=== PATIENT | male | born 1980 | race Caucasian/White ===

== ENCOUNTER 2017-05-10 11:49 | Inpatient (IN) | payer OTHER ==
[2017-05-10 13:36] VITALS: BMI 37.6
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
[2017-05-10] MEDS ORDERED: diphenhydrAMINE HCL 50 MG CAPSULE PO PRN (17:32)
[2017-05-10] MEDS ORDERED: MAG HYDROX/AL HYDROX/SIMETH 30 ML UNIT-DOSE CUP PO PRN (17:32)
[2017-05-10] MEDS ORDERED: NICOTINE POLACRILEX 2 MG GUM BUC PRN (17:32)
[2017-05-10] MEDS ORDERED: MENTHOL/PHENOL 1 EACH UD MM PRN (17:32)
[2017-05-10] MEDS ORDERED: guaiFENesin/D-METHORPHAN HB 10 ML UNIT-DOSE CUPS PO PRN (17:32)
[2017-05-10] MEDS ORDERED: P-EPHED 60MG/TRIPROLIDI 2.5MG TABLET PO PRN (17:32)
[2017-05-10] MEDS ORDERED: MAGNESIUM HYDROX 2400MG/30ML ORAL SUSPENSION 30 ML CUP PO PRN (17:32)
[2017-05-10] MEDS ORDERED: IBUPROFEN 400 MG TABLET (FP) PO PRN (17:32)
[2017-05-10] MEDS ORDERED: LOPERAMIDE HCL 2 MG CAPSULE PO PRN (17:32)
[2017-05-10] MEDS ORDERED: MAGNESIUM CITRATE 300 ML BOTTLE PO PRN (17:32)
[2017-05-10] MEDS ORDERED: ACETAMINOPHEN 325 MG TABLET (FP) PO PRN (17:32)
[2017-05-10] MEDS ORDERED: ALBUTEROL SO4 6.7 GM HFA INHALER IH PRN (17:34)
[2017-05-10] MEDS ORDERED: ALBUTEROL SO4 2.5/IPRATROPIUM 0.5 INH SOL 3 ML VIAL.NEB. NEB PRN (17:34)
[2017-05-10] MEDS ORDERED: METHADONE HCL 10 MG TABLET (FOR DETOX USE ONLY) PO ONE ×2 (18:15→23:00)
[2017-05-10] MEDS: diazePAM 5 MG TABLET PO PRN ×2 (18:19→22:30)
[2017-05-10] MEDS ORDERED: TETANUS AND DIPHTHERIA TOXOID 0.5 ML DISP.SYRIN IM ONE (22:00)
[2017-05-10 22:30] LABS: URINE APPEARANCE CLEAR; URINE BILIRUBIN NEGATIVE (NEGATIVE); URINE BLOOD NEGATIVE (NEGATIVE); URINE COLOR LTYELLOW; URINE GLUCOSE (UA) NEGATIVE (NEGATIVE); URINE KETONE NEGATIVE (NEGATIVE); URINE LEUK ESTERASE NEGATIVE (NEGATIVE); URINE NITRITE NEGATIVE (NEGATIVE); URINE PROTEIN NEGATIVE (NEGATIVE); URINE UROBILINOGEN NEGATIVE E.U./dl (0.2-1.0)
[2017-05-10] MEDS: THIAMINE HCL 100 MG TABLET (FP) PO SCH (22:30)
[2017-05-11] MEDS: diazePAM 5 MG TABLET PO PRN ×4 (05:31→19:38)
--- NOTE | 2017-05-11 09:54 | CONSULT ---
[facility] Psychiatric Consult - Data Date of interview: 05/11/17 Admission source: [facility] Identifying data: This is 36 years old male with no psychiatric hospitalization history intoxicated with: Opioids, Klonopin and Nicotine Substance Abuse History: - Smoking Cessation. Smoking history: Current every day smoker. Have you smoked in the past 12 months: Yes. Aproximately how many cigarettes per day: 10. Cigars Per Day: 0. Hx Chewing Tobacco Use: No. Initiated information on smoking cessation: Yes. 'Breaking Loose' booklet given : 05/10/17. - Substance & Tx. History. Hx Alcohol Use: No. Hx Substance Use: Yes. Substance Use Type: Heroin. Hx Substance Use Treatment: No. - Substances Abused. Roxycodone. Route: Oral. Frequency: Daily. Amount used : 8 tabs. (30 mg.). Age of first use: 33. Date of Last Use: 05/09/17. Klonopin. Route: Oral. Frequency: 3-6 times per week. Amount used: 3-4 mg. Age of first use: 17. Date of Last Use: 05/10/17 Medical History: Asthma Psychiatric History: Denies Physical/Sexual Abuse/Trauma History: Denies Additional Comment: Observation. Detox Unit Care Protocol Mental Status Exam - Mental Status Exam Alert and Oriented to: Person Cognitive Function: Fair Patient Appearance: Unkempt Mood: Sad Affect: Flat Patient Behavior: Sedated Speech Pattern: Delayed Voice Loudness: Mildly Soft/Quiet Thought Process: Goal Oriented Thought Disorder: Being Controlled Hallucinations: Denies Suicidal Ideation: Denies Homicidal Ideation: Denies Insight/Judgement: Fair Sleep: Difficulty falling asleep Appetite: Fair Muscle strength/Tone: Normal Gait/Station: Normal Additional Comments: Observation. Detox Unit Care Protocol Psychiatric Findings - Problem List ([place] 1, 2,3) (1) Nicotine dependence Current Visit: Yes Status: Acute Qualifiers: Nicotine product type: cigarettes Substance use status: in withdrawal Qualified Code(s): F17.213 - Nicotine dependence, cigarettes, with withdrawal (2) Opioid dependence with withdrawal Current Visit: Yes Status: Acute (3) Klonopin use disorder, mild, abuse Current Visit: Yes Status: Acute (4) Drug-induced mood disorder Current Visit: Yes Status: Suspected - Initial Treatment Plan Initial Treatment Plan: Observation. Detox Unit Care Protocol
[2017-05-11] MEDS ORDERED: NICOTINE 21 MG/24 HOURS TOPICAL PATCH TD SCH (10:00)
[2017-05-11] MEDS ORDERED: METHADONE HCL 10 MG TABLET (FOR DETOX USE ONLY) PO ONE (10:00)
[2017-05-11 10:09] LABS: MCH 30.2 pg (25.7-33.7); MCHC 33.6 g/dl (32.0-35.9); MEAN CELL VOLUME 89.9 fl (80-96); MEAN PLT VOLUME 9.2 fl (7.5-11.1); PLATELET COUNT 168 K/MM3 (134-434); RDW 13.4 % (11.9-15.9); WHITE BLOOD COUNT 6.4 K/mm3 (4.0-10.0)
[2017-05-11] MEDS: PRENATAL VITAMINS W/ FOLIC ACID TABLET (FP) PO SCH (10:18)
--- NOTE | 2017-05-11 10:18 | PN ---
S COWS - Scale Resting Pulse: 2= [place] 101-120 Sweatin= Chills/Flushing Restless Observation: 3= Extraneous Movement Pupil Size: 1= Pupils >than Normal Bone or Joint Aches: 2= Severe Diffuse Aches Runny Nose/ Eye Tearin= Runny Nose/Eyes GI Upset > 30mins: 2= Nausea/Diarrhea Tremor Observation of Outstretched Hands: 2= Slight Tremor Visible Yawning Observation: 1= 1-2x During Session Anxiety or Irritability: 2=Irritable/Anxious Goose Flesh Skin: 0=Smooth Skin COWS Score: 18 S Progress Note (SOAP) Subjective: alert,irritable,anxious,interrupted sleep,tremor,pain in the body Objective: 05/11/17 10:15 Vital Signs Temperature 97 F L 05/11/17 09:35 Pulse Rate 108 H 05/11/17 09:35 Respiratory Rate 18 05/11/17 09:35 Blood Pressure 147/79 05/11/17 09:35 O2 Sat by Pulse Oximetry (%) ekg nsr no chest pain,no sob,no dizziness Laboratory Last Values WBC 6.4 K/mm3 (4.0-10.0) 05/11/17 06:00 RBC 4.80 M/mm3 (4.00-5.60) 05/11/17 06:00 Hgb 14.5 GM/dL (11.7-16.9) 05/11/17 06:00 Hct 43.1 % (35.4-49) 05/11/17 06:00 MCV 89.9 fl (80-96) 05/11/17 06:00 MCHC 33.6 g/dl (32.0-35.9) 05/11/17 06:00 RDW 13.4 % (11.9-15.9) 05/11/17 06:00 Plt Count 168 K/MM3 (134-434) 05/11/17 06:00 MPV 9.2 fl (7.5-11.1) 05/11/17 06:00 Urine Color Ltyellow 05/10/17 20:30 Urine Appearance Clear 05/10/17 20:30 Urine pH 8.0 (5.0-8.0) 05/10/17 20:30 Urine Protein Negative (NEGATIVE) 05/10/17 20:30 Urine Glucose (UA) Negative (NEGATIVE) 05/10/17 20:30 Urine Ketones Negative (NEGATIVE) 05/10/17 20:30 Urine Blood Negative (NEGATIVE) 05/10/17 20:30 Urine Nitrite Negative (NEGATIVE) 05/10/17 20:30 Urine Bilirubin Negative (NEGATIVE) 05/10/17 20:30 Urine Urobilinogen Negative E.U./dl (0.2-1.0) 05/10/17 20:30 Ur Leukocyte Esterase Negative (NEGATIVE) 05/10/17 20:30 labs pending Assessment: 05/11/17 10:17 withdrawal symptom Plan: continue detox
[2017-05-11] MEDS: NICOTINE 14 MG/24 HOURS TOPICAL PATCH TD SCH (10:23)
[2017-05-11 10:46] LABS: ALBUMIN 3.9 g/dl (3.4-5.0); ALK PHOS 101 U/L (45-117); ANION GAP 8 (8-16); BILIRUBIN,TOTAL 1.2 mg/dL (0.2-1.0); CALCIUM 8.9 mg/dL (8.5-10.1); CO2 28 mmol/L (21-32); CREATININE 1.3 mg/dL (0.7-1.3); GLUCOSE,RANDOM 114 mg/dL (74-106); SGOT/AST 24 U/L (15-37); SGPT/ALT 58 U/L (12-78); TOT PROT 7.1 g/dl (6.4-8.2)
--- NOTE | 2017-05-11 12:49 | EKG ---
Test Reason : Blood Pressure : / mmHG Vent. Rate : 091 BPM Atrial Rate : 091 BPM P-R Int : 176 ms QRS Dur : 106 ms QT Int : 354 ms P-R-T Axes : 056 -32 046 degrees QTc Int : 435 ms NORMAL SINUS RHYTHM LEFT AXIS DEVIATION INCOMPLETE RIGHT BUNDLE BRANCH BLOCK ABNORMAL ECG NO PREVIOUS ECGS AVAILABLE Confirmed by GEORGE MARTINEZ MD ([id number]) on 05/11/2017 12:48:53 PM Referred By: Confirmed By:GEORGE MARTINEZ MD
[2017-05-11] MEDS: THIAMINE HCL 100 MG TABLET (FP) PO SCH (22:26)
[2017-05-12] MEDS: diazePAM 5 MG TABLET PO PRN ×2 (05:08→10:08)
[2017-05-12 09:44] VITALS: BP 126/98; PULSE 96; TEMP 96.8
[2017-05-12] MEDS ORDERED: METHADONE HCL 5 MG TABLET (FOR DETOX USE ONLY) PO ONE (10:00)
[2017-05-12] MEDS: PRENATAL VITAMINS W/ FOLIC ACID TABLET (FP) PO SCH (10:06)
[2017-05-12] MEDS: NICOTINE 14 MG/24 HOURS TOPICAL PATCH TD SCH (10:07)
--- NOTE | 2017-05-12 11:06 | PN ---
[facility] COWS - Scale Resting Pulse: 1= [place] 81-100 Sweatin= Chills/Flushing Restless Observation: 3= Extraneous Movement Pupil Size: 1= Pupils >than Normal Bone or Joint Aches: 2= Severe Diffuse Aches Runny Nose/ Eye Tearin= Runny Nose/Eyes GI Upset > 30mins: 2= Nausea/Diarrhea Tremor Observation of Outstretched Hands: 2= Slight Tremor Visible Yawning Observation: 1= 1-2x During Session Anxiety or Irritability: 2=Irritable/Anxious Goose Flesh Skin: 0=Smooth Skin COWS Score: 17 BHS Progress Note (SOAP) Subjective: ALERT,IRRITABLE,ANXIOUS,PAIN IN THE BODY AND BACK,TREMOR Objective: 05/12/17 11:05 Vital Signs Temperature 96.8 F L 05/12/17 09:43 Pulse Rate 96 H 05/12/17 09:43 Respiratory Rate 20 05/12/17 09:43 Blood Pressure 126/98 05/12/17 09:43 O2 Sat by Pulse Oximetry (%) Laboratory Last Values WBC 6.4 K/mm3 (4.0-10.0) 05/11/17 06:00 RBC 4.80 M/mm3 (4.00-5.60) 05/11/17 06:00 Hgb 14.5 GM/dL (11.7-16.9) 05/11/17 06:00 Hct 43.1 % (35.4-49) 05/11/17 06:00 MCV 89.9 fl (80-96) 05/11/17 06:00 MCHC 33.6 g/dl (32.0-35.9) 05/11/17 06:00 RDW 13.4 % (11.9-15.9) 05/11/17 06:00 Plt Count 168 K/MM3 (134-434) 05/11/17 06:00 MPV 9.2 fl (7.5-11.1) 05/11/17 06:00 Sodium 142 mmol/L (136-145) 05/11/17 06:00 Potassium 4.2 mmol/L (3.5-5.1) 05/11/17 06:00 Chloride 106 mmol/L (98-107) 05/11/17 06:00 Carbon Dioxide 28 mmol/L (21-32) 05/11/17 06:00 Anion Gap 8 (8-16) 05/11/17 06:00 BUN 20 mg/dL (7-18) H 05/11/17 06:00 Creatinine 1.3 mg/dL (0.7-1.3) 05/11/17 06:00 Creat Clearance w eGFR > 60 (>60) 05/11/17 06:00 Random Glucose 114 mg/dL (74-106) H 05/11/17 06:00 Calcium 8.9 mg/dL (8.5-10.1) 05/11/17 06:00 Total Bilirubin 1.2 mg/dL (0.2-1.0) H 05/11/17 06:00 AST 24 U/L (15-37) 05/11/17 06:00 ALT 58 U/L (12-78) 05/11/17 06:00 Alkaline Phosphatase 101 U/L (45-117) 05/11/17 06:00 Total Protein 7.1 g/dl (6.4-8.2) 05/11/17 06:00 Albumin 3.9 g/dl (3.4-5.0) 05/11/17 06:00 Urine Color Ltyellow 05/10/17 20:30 Urine Appearance Clear 05/10/17 20:30 Urine pH 8.0 (5.0-8.0) 05/10/17 20:30 Ur Specific [place] 1.020 (1.005-1.025) 05/10/17 20:30 Urine Protein Negative (NEGATIVE) 05/10/17 20:30 Urine Glucose (UA) Negative (NEGATIVE) 05/10/17 20:30 Urine Ketones Negative (NEGATIVE) 05/10/17 20:30 Urine Blood Negative (NEGATIVE) 05/10/17 20:30 Urine Nitrite Negative (NEGATIVE) 05/10/17 20:30 Urine Bilirubin Negative (NEGATIVE) 05/10/17 20:30 Urine Urobilinogen Negative E.U./dl (0.2-1.0) 05/10/17 20:30 Ur Leukocyte Esterase Negative (NEGATIVE) 05/10/17 20:30 RPR Titer Nonreactive (NONREACTIVE) 05/11/17 06:00 Hepatitis C Antibody <0.1 s/co ratio (0.0-0.9) 05/11/17 06:00 Assessment: 05/12/17 11:05 WITHDRAWAL SYMPTOM Plan: CONTINUE DETOX
--- NOTE | 2017-05-12 11:08 | PN ---
S Progress Note Note: PATIENT DID NOT WANT TO COMPLETE TREATMENT,SIGNED RELEASE AMA,SEEN BY COUNSELOR
--- NOTE | 2017-05-12 11:11 | DS ---
[facility] Detox Discharge Summary Admission Date: 05/10/17 Discharge Date: 05/12/17 - History Present History: Opioid Dependence Additional Comments: PATIENT DID NOT WANT TO COMPLETE TREATMENT,SINGED RELEASE AMA,SEEN BY COUNSELOR Pertinent Past History: ASTHMA NICOTINE DEPENDENCE - Physical Exam Results Vital Signs: Vital Signs Temperature 96.8 F L 05/12/17 09:43 Pulse Rate 96 H 05/12/17 09:43 Respiratory Rate 20 05/12/17 09:43 Blood Pressure 126/98 05/12/17 09:43 O2 Sat by Pulse Oximetry (%) Pertinent Admission Physical Exam Findings: WITHDRAWAL SYMPTOM - Treatment Patient has Accepted a Rehab Referral to: DECLINED - Medication Discharge Medications: Ambulatory Orders Albuterol Sulfate Inhaler - [Ventolin Hfa Inhaler -] 2 inh PO Q4H PRN 05/10/17 - Diagnosis (1) Nicotine dependence Current Visit: Yes Status: Acute Qualifiers: Nicotine product type: cigarettes Substance use status: in withdrawal Qualified Code(s): F17.213 - Nicotine dependence, cigarettes, with withdrawal (2) Opioid dependence with withdrawal Current Visit: Yes Status: Acute (3) Asthma Current Visit: Yes Status: Chronic Qualifiers: Asthma severity: mild persistent Asthma complication type: with status asthmaticus Qualified Code(s): J45.32 - Mild persistent asthma with status asthmaticus
[2017-05-13] MEDS ORDERED: METHADONE HCL 5 MG TABLET (FOR DETOX USE ONLY) PO ONE (10:00)
[2017-05-14] MEDS ORDERED: METHADONE HCL 10 MG TABLET (FOR DETOX USE ONLY) PO ONE (10:00)
[2017-05-15] MEDS ORDERED: METHADONE HCL 5 MG TABLET (FOR DETOX USE ONLY) PO ONE (06:00)
== END 2017-05-12 11:31 | disposition left against medical advice (07) | DRG 894 ==
LOC: YASAS 11:49 → Y6N 16:08
PROVIDERS: ADMIT Internal Medicine; ATTEND Internal Medicine
PROC: HZ2ZZZZ Detoxification Services for Substance Abuse Treatment (ICD-10-PCS; principal; 2017-05-10)
DX: F11.23 Opioid dependence with withdrawal (principal); J45.32 Mild persistent asthma with status asthmaticus; F17.210 Nicotine dependence, cigarettes, uncomplicated; F19.24 Other psychoactive substance dependence with psychoactive substance-induced mood disorder; E66.9 Obesity, unspecified; Z68.37 Body mass index [BMI] 37.0-37.9, adult; Z86.69 Personal history of other diseases of the nervous system and sense organs; Z87.438 Personal history of other diseases of male genital organs
CPT/HCPCS: 36415; 80053; 81003; 85027; 86593; 86803; 93005; 93010

== ENCOUNTER 2017-07-07 12:24 | Inpatient (IN) | payer OTHER ==
[2017-07-07 12:57] VITALS: BMI 34.2
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
[2017-07-07] MEDS ORDERED: IBUPROFEN 400 MG TABLET (FP) PO PRN (15:22)
[2017-07-07] MEDS ORDERED: MAGNESIUM CITRATE 300 ML BOTTLE PO PRN (15:22)
[2017-07-07] MEDS ORDERED: ACETAMINOPHEN 325 MG TABLET (FP) PO PRN (15:22)
[2017-07-07] MEDS ORDERED: guaiFENesin/D-METHORPHAN HB 10 ML UNIT-DOSE CUPS PO PRN (15:22)
[2017-07-07] MEDS ORDERED: MAGNESIUM HYDROX 2400MG/30ML ORAL SUSPENSION 30 ML CUP PO PRN (15:22)
[2017-07-07] MEDS ORDERED: NICOTINE POLACRILEX 2 MG GUM BUC PRN (15:22)
[2017-07-07] MEDS ORDERED: P-EPHED 60MG/TRIPROLIDI 2.5MG TABLET PO PRN (15:22)
[2017-07-07] MEDS ORDERED: hydrOXYzine PAMOATE 50 MG CAPSULE (FP) PO PRN (15:22)
[2017-07-07] MEDS ORDERED: MENTHOL/PHENOL 1 EACH UD MM PRN (15:22)
[2017-07-07] MEDS ORDERED: MAG HYDROX/AL HYDROX/SIMETH 30 ML UNIT-DOSE CUP PO PRN (15:22)
[2017-07-07] MEDS ORDERED: LOPERAMIDE HCL 2 MG CAPSULE PO PRN (15:22)
[2017-07-07] MEDS ORDERED: ALBUTEROL SO4 6.7 GM HFA INHALER IH PRN (15:27)
--- NOTE | 2017-07-07 15:34 | CONSULT ---
[facility] Psychiatric Consult - Data Date of interview: 07/07/17 Admission source: [facility] Identifying data: This is 37 years old male with no psychiatric hospitalization history, intoxicated with: Alcohol, Cocaine, Heroin, Carri, Methamphethamins and Nicotine Substance Abuse History: - Smoking Cessation. Smoking history: Current every day smoker. Have you smoked in the past 12 months: Yes. Aproximately how many cigarettes per day: 6. If you are a former smoker, when did you quit?: 2006. Cigars Per Day: 0. Hx Chewing Tobacco Use: No. Initiated information on smoking cessation: Yes. 'Breaking Loose' booklet given: 07/07/17. - Substance & Tx. History. Hx Alcohol Use: Yes (BACARDI). Hx Substance Use: Yes (HEROIN/ ROXYCODONE/STREET METHADONE/KLONOPIN/COCAINE/FENTANYL). Substance Use Type: Alcohol, Cocaine, Heroin, Opiates, Tranquilizers. Hx Substance Use Treatment: Yes (LAST TX AT [facility] DETOX). - Substances Abused. Alcohol. Route: Oral. Frequency: Daily. Amount used: RUm(1 PINT). Age of first use: 13. Date of Last Use: 07/07/17. Cocaine. Route: Injection. Frequency: Daily. Amount used: 2 GMS. Age of first use: 8. Date of Last Use: 07/06/17. Heroin. Route: Inhalation. Frequency: Daily. Amount used: 2-3 BAGS. Age of first use : 16. Date of Last Use: 07/05/17. Benzodiazepine (Klonopin). Route: Oral. Frequency: Daily. Amount used: 2-9MG. Age of first use: 27. Date of Last Use: 07/07/17. Non-Rx Methadone. Route: Oral. Frequency: 3-6 times per week. Amount used: 180 MG. Age of first use: 37. Date of Last Use: 07/06/17. CARRI. Route: Oral. Frequency: Daily. Amount used: 150 MG. Age of first use: 35. Date of Last Use: 07/05/17 Medical History: Asthma, Seizure disorder Psychiatric History: Denies past psychiatric history, reports no medications taking prior to admission Physical/Sexual Abuse/Trauma History: Denies Additional Comment: Observation. Detox Unit Care Protocol Mental Status Exam - Mental Status Exam Alert and Oriented to: Time, Place, Person Cognitive Function: Fair Patient Appearance: Well Groomed Mood: Anxious Affect: Mood Congruent Patient Behavior: Appropriate Speech Pattern: Appropriate Voice Loudness: Normal Thought Process: Goal Oriented Thought Disorder: Being Controlled Hallucinations: Denies Suicidal Ideation: Denies Homicidal Ideation: Denies Insight/Judgement: Fair Sleep: Difficulty falling asleep Appetite: Fair Muscle strength/Tone: Normal Gait/Station: Normal Additional Comments: Observation. Detox Unit Care Protocol Psychiatric Findings - Problem List ([place] 1, 2,3) (1) Alcohol dependence with uncomplicated withdrawal Current Visit: Yes Status: Acute (2) Nicotine dependence Current Visit: Yes Status: Acute Qualifiers: Nicotine product type: cigarettes Substance use status: in withdrawal Qualified Code(s): F17.213 - Nicotine dependence, cigarettes, with withdrawal (3) Opioid dependence with withdrawal Current Visit: Yes Status: Acute (4) Klonopin use disorder, mild, abuse Current Visit: No Status: Acute (5) Drug-induced mood disorder Current Visit: No Status: Suspected (6) Methamphetamine abuse Current Visit: Yes Status: Acute - Initial Treatment Plan Initial Treatment Plan: Observation. Detox Unit Care Protocol
[2017-07-07] MEDS ORDERED: chlordiazePOXIDE HCL 25 MG CAPSULE PO ONE (15:41)
[2017-07-07] MEDS ORDERED: METHADONE HCL 10 MG TABLET (FOR DETOX USE ONLY) PO ONE ×2 (15:42→23:00)
[2017-07-07 15:53] LABS: MCH 30.8 pg (25.7-33.7); MCHC 35.1 g/dl (32.0-35.9); MEAN CELL VOLUME 87.7 fl (80-96); MEAN PLT VOLUME 8.5 fl (7.5-11.1); PLATELET COUNT 291 K/MM3 (134-434); RDW 13.5 % (11.9-15.9); WHITE BLOOD COUNT 7.6 K/mm3 (4.0-10.0)
[2017-07-07 16:39] LABS: ALBUMIN 3.9 g/dl (3.4-5.0); ANION GAP 7 (8-16); CO2 26 mmol/L (21-32); CREATININE 1.3 mg/dL (0.7-1.3); GLUCOSE,RANDOM 119 mg/dL (74-106); SGOT/AST 14 U/L (15-37); SGPT/ALT 39 U/L (12-78)
[2017-07-07 16:41] LABS: ALK PHOS 98 U/L (45-117); BILIRUBIN,TOTAL 1.1 mg/dL (0.2-1.0); TOT PROT 7.3 g/dl (6.4-8.2)
[2017-07-07] MEDS: chlordiazePOXIDE HCL 25 MG CAPSULE PO SCH ×2 (16:48→22:09)
[2017-07-07] MEDS: NICOTINE 14 MG/24 HOURS TOPICAL PATCH TD SCH ×2 (16:51→17:17)
[2017-07-07] MEDS: THIAMINE HCL 100 MG TABLET (FP) PO SCH (22:09)
[2017-07-07 22:27] LABS: URINE APPEARANCE CLEAR; URINE BILIRUBIN NEGATIVE (NEGATIVE); URINE BLOOD NEGATIVE (NEGATIVE); URINE COLOR YELLOW; URINE GLUCOSE (UA) NEGATIVE (NEGATIVE); URINE KETONE NEGATIVE (NEGATIVE); URINE LEUK ESTERASE NEGATIVE (NEGATIVE); URINE NITRITE NEGATIVE (NEGATIVE); URINE PROTEIN NEGATIVE (NEGATIVE)
[2017-07-08] MEDS: chlordiazePOXIDE HCL 25 MG CAPSULE PO SCH ×4 (05:24→22:05)
[2017-07-08 09:36] LABS: HIV 1 & 2 AB NEGATIVE; HIV 1 AGp24 NEGATIVE
--- NOTE | 2017-07-08 09:38 | EKG ---
Test Reason : Blood Pressure : / mmHG Vent. Rate : 077 BPM Atrial Rate : 077 BPM P-R Int : 166 ms QRS Dur : 110 ms QT Int : 378 ms P-R-T Axes : 050 -31 043 degrees QTc Int : 427 ms NORMAL SINUS RHYTHM LEFT AXIS DEVIATION ABNORMAL ECG Confirmed by ZINA STOKES MD ([id number]) on 07/08/2017 9:37:53 AM Referred By: Musa Bravo Confirmed By:ZINA STOKES MD
[2017-07-08] MEDS ORDERED: METHADONE HCL 10 MG TABLET (FOR DETOX USE ONLY) PO SCH (10:00)
[2017-07-08] MEDS: NICOTINE 14 MG/24 HOURS TOPICAL PATCH TD SCH (10:12)
[2017-07-08] MEDS: PRENATAL VITAMINS W/ FOLIC ACID TABLET (FP) PO SCH (10:12)
[2017-07-08] MEDS ORDERED: TRIMETHOBENZAMIDE HCL 200MG/2ML INJ IM PRN (10:41)
--- NOTE | 2017-07-08 10:47 | PN ---
S CIWA - CIWA Score Nausea/Vomitin Muscle Tremors: 3 Anxiety: 2 Agitation: 0-Normal Activity Paroxysmal Sweats: 3 Orientation: 0-Oriented Tacttile Disturbances: 2-Mild Itch/Numbness/Burn Auditory Disturbances: 0-None Visual Disturbances: 0-None Headache: 3-Moderate CIWA-Ar Total Score: 18 BHS COWS - Scale Resting Pulse: 2= [place] 101-120 Sweatin= Chills/Flushing Restless Observation: 0= Sits Still Pupil Size: 0= Normal to Room Light Bone or Joint Aches: 2= Severe Diffuse Aches Runny Nose/ Eye Tearin= Nasal Congestion GI Upset > 30mins: 3= Vomiting/Diarrhea Tremor Observation of Outstretched Hands: 2= Slight Tremor Visible Yawning Observation: 1= 1-2x During Session Anxiety or Irritability: 2=Irritable/Anxious Goose Flesh Skin: 0=Smooth Skin COWS Score: 14 BHS Progress Note (SOAP) Subjective: Tremors, Stomach Cramping, H/A, Vomiting, Interrupted Sleep, Body aches, Sweating. Objective: PT. A & O X 3, OBSERVED AMBULATING ON UNIT. NO ACUTE DISTRESS. 07/08/17 10:44 Vital Signs Temperature 96.5 F L 07/08/17 10:37 Pulse Rate 101 H 07/08/17 10:37 Respiratory Rate 19 07/08/17 10:37 Blood Pressure 113/76 07/08/17 10:37 O2 Sat by Pulse Oximetry (%) Laboratory Tests 07/07/17 07/07/17 07/07/17 14:00 14:00 14:00 WBC 7.6 RBC 4.89 Hgb 15.1 Hct 42.9 MCV 87.7 MCH 30.8 MCHC 35.1 RDW 13.5 Plt Count 291 D MPV 8.5 Sodium 141 Potassium 4.2 Chloride 108 H Carbon Dioxide 26 Anion Gap 7 L BUN 13 D Creatinine 1.3 Creat Clearance w eGFR > 60 Random Glucose 119 H Calcium 9.0 Total Bilirubin 1.1 H AST 14 L D ALT 39 D Alkaline Phosphatase 98 Total Protein 7.3 Albumin 3.9 Urine Color Urine Appearance Urine pH Urine Protein Urine Glucose (UA) Urine Ketones Urine Blood Urine Nitrite Urine Bilirubin Urine Urobilinogen Ur Leukocyte Esterase HIV 1&2 Antibody Screen Negative HIV P24 Antigen Negative 07/07/17 16:12 WBC RBC Hgb Hct MCV MCH MCHC RDW Plt Count MPV Sodium Potassium Chloride Carbon Dioxide Anion Gap BUN Creatinine Creat Clearance w eGFR Random Glucose Calcium Total Bilirubin AST ALT Alkaline Phosphatase Total Protein Albumin Urine Color Yellow Urine Appearance Clear Urine pH 5.0 D Urine Protein Negative Urine Glucose (UA) Negative Urine Ketones Negative Urine Blood Negative Urine Nitrite Negative Urine Bilirubin Negative Urine Urobilinogen 2.0 Ur Leukocyte Esterase Negative HIV 1&2 Antibody Screen HIV P24 Antigen LABS NOTED. RPR PENDING. 07/08/17 10:46 Assessment: 07/08/17 10:45 WITHDRAWAL SYMPTOMS. Plan: CONTINUE DETOX. TIGAN IM PRN FOR NAUSEA / VOMITING.
[2017-07-08] MEDS: chlordiazePOXIDE HCL 25 MG CAPSULE PO PRN (15:35)
[2017-07-08] MEDS: THIAMINE HCL 100 MG TABLET (FP) PO SCH (22:05)
[2017-07-08] MEDS: diphenhydrAMINE HCL 50 MG CAPSULE PO PRN (22:05)
[2017-07-09] MEDS: chlordiazePOXIDE HCL 25 MG CAPSULE PO SCH ×2 (05:32→10:03)
[2017-07-09] MEDS: METHADONE HCL 5 MG TABLET (FOR DETOX USE ONLY) PO SCH (10:03)
[2017-07-09] MEDS: NICOTINE 14 MG/24 HOURS TOPICAL PATCH TD SCH (10:03)
[2017-07-09] MEDS: PRENATAL VITAMINS W/ FOLIC ACID TABLET (FP) PO SCH (10:04)
[2017-07-09] MEDS: chlordiazePOXIDE HCL 25 MG CAPSULE PO PRN (13:51)
--- NOTE | 2017-07-09 14:26 | PN ---
[facility] CIWA - CIWA Score Nausea/Vomitin Muscle Tremors: 2 Anxiety: 2 Agitation: 1-Slight > Activity Paroxysmal Sweats: 3 Orientation: 0-Oriented Tacttile Disturbances: 0-None Auditory Disturbances: 0-None Visual Disturbances: 1-Very Mild Sensitivity Headache: 3-Moderate CIWA-Ar Total Score: 17 BHS COWS - Scale Resting Pulse: 2= [place] 101-120 Sweatin= Chills/Flushing Restless Observation: 0= Sits Still Pupil Size: 0= Normal to Room Light Bone or Joint Aches: 2= Severe Diffuse Aches Runny Nose/ Eye Tearin= Nasal Congestion GI Upset > 30mins: 3= Vomiting/Diarrhea Tremor Observation of Outstretched Hands: 2= Slight Tremor Visible Yawning Observation: 1= 1-2x During Session Anxiety or Irritability: 2=Irritable/Anxious Goose Flesh Skin: 0=Smooth Skin COWS Score: 14 S Progress Note (SOAP) Subjective: Sweating, Body Aches, H/A, Vomiting. Objective: PT. A & O X 3, OBSERVED AMBULATING ON UNIT. NO ACUTE DISTRESS. 07/09/17 14:24 Vital Signs Temperature 97.1 F L 07/09/17 13:50 Pulse Rate 109 H 07/09/17 13:50 Respiratory Rate 20 07/09/17 13:50 Blood Pressure 122/82 07/09/17 13:50 O2 Sat by Pulse Oximetry (%) Laboratory Tests 07/07/17 07/07/17 07/07/17 14:00 14:00 14:00 WBC 7.6 RBC 4.89 Hgb 15.1 Hct 42.9 MCV 87.7 MCH 30.8 MCHC 35.1 RDW 13.5 Plt Count 291 D MPV 8.5 Sodium 141 Potassium 4.2 Chloride 108 H Carbon Dioxide 26 Anion Gap 7 L BUN 13 D Creatinine 1.3 Creat Clearance w eGFR > 60 Random Glucose 119 H Calcium 9.0 Total Bilirubin 1.1 H AST 14 L D ALT 39 D Alkaline Phosphatase 98 Total Protein 7.3 Albumin 3.9 Urine Color Urine Appearance Urine pH Ur Specific [place] Urine Protein Urine Glucose (UA) Urine Ketones Urine Blood Urine Nitrite Urine Bilirubin Urine Urobilinogen Ur Leukocyte Esterase RPR Titer HIV 1&2 Antibody Screen Negative HIV P24 Antigen Negative 07/07/17 07/07/17 14:00 16:12 WBC RBC Hgb Hct MCV MCH MCHC RDW Plt Count MPV Sodium Potassium Chloride Carbon Dioxide Anion Gap BUN Creatinine Creat Clearance w eGFR Random Glucose Calcium Total Bilirubin AST ALT Alkaline Phosphatase Total Protein Albumin Urine Color Yellow Urine Appearance Clear Urine pH 5.0 D Ur Specific [place] 1.025 Urine Protein Negative Urine Glucose (UA) Negative Urine Ketones Negative Urine Blood Negative Urine Nitrite Negative Urine Bilirubin Negative Urine Urobilinogen 2.0 Ur Leukocyte Esterase Negative RPR Titer Nonreactive HIV 1&2 Antibody Screen HIV P24 Antigen LABS NOTED. Assessment: 07/09/17 14:24 WITHDRAWAL SYMPTOMS. Plan: CONTINUE DETOX.
[2017-07-09] MEDS: chlordiazePOXIDE 5 MG CAPSULE PO SCH ×2 (17:41→22:11)
[2017-07-09] MEDS: THIAMINE HCL 100 MG TABLET (FP) PO SCH (22:11)
[2017-07-09] MEDS: diphenhydrAMINE HCL 50 MG CAPSULE PO PRN (22:12)
[2017-07-10] MEDS: chlordiazePOXIDE 5 MG CAPSULE PO SCH ×2 (05:41→10:03)
[2017-07-10] MEDS: NICOTINE 14 MG/24 HOURS TOPICAL PATCH TD SCH (10:03)
[2017-07-10] MEDS: PRENATAL VITAMINS W/ FOLIC ACID TABLET (FP) PO SCH (10:03)
[2017-07-10] MEDS: METHADONE HCL 5 MG TABLET (FOR DETOX USE ONLY) PO SCH (10:03)
[2017-07-10] MEDS: chlordiazePOXIDE HCL 25 MG CAPSULE PO PRN (14:09)
--- NOTE | 2017-07-10 15:22 | PN ---
BHS Progress Note (SOAP) Subjective: Tremor, chills, sweating, vomiting, nausea Objective: 07/10/17 15:21 Last Vital Signs Temp Pulse Resp BP Pulse Ox 98.1 F 108 H 20 126/81 07/10/17 14:15 07/10/17 14:15 07/10/17 14:15 07/10/17 14:15 Laboratory Tests 07/07/17 07/07/17 07/07/17 14:00 14:00 14:00 WBC 7.6 RBC 4.89 Hgb 15.1 Hct 42.9 MCV 87.7 MCH 30.8 MCHC 35.1 RDW 13.5 Plt Count 291 D MPV 8.5 Sodium 141 Potassium 4.2 Chloride 108 H Carbon Dioxide 26 Anion Gap 7 L BUN 13 D Creatinine 1.3 Creat Clearance w eGFR > 60 Random Glucose 119 H Calcium 9.0 Total Bilirubin 1.1 H AST 14 L D ALT 39 D Alkaline Phosphatase 98 Total Protein 7.3 Albumin 3.9 Urine Color Urine Appearance Urine pH Ur Specific [place] Urine Protein Urine Glucose (UA) Urine Ketones Urine Blood Urine Nitrite Urine Bilirubin Urine Urobilinogen Ur Leukocyte Esterase RPR Titer HIV 1&2 Antibody Screen Negative HIV P24 Antigen Negative 07/07/17 07/07/17 14:00 16:12 WBC RBC Hgb Hct MCV MCH MCHC RDW Plt Count MPV Sodium Potassium Chloride Carbon Dioxide Anion Gap BUN Creatinine Creat Clearance w eGFR Random Glucose Calcium Total Bilirubin AST ALT Alkaline Phosphatase Total Protein Albumin Urine Color Yellow Urine Appearance Clear Urine pH 5.0 D Ur Specific [place] 1.025 Urine Protein Negative Urine Glucose (UA) Negative Urine Ketones Negative Urine Blood Negative Urine Nitrite Negative Urine Bilirubin Negative Urine Urobilinogen 2.0 Ur Leukocyte Esterase Negative RPR Titer Nonreactive HIV 1&2 Antibody Screen HIV P24 Antigen Labs noted Assessment: 07/10/17 15:21 Withdrawal symptoms Plan: Continue detox Encouraged to drink lots of water
[2017-07-10] MEDS: chlordiazePOXIDE HCL 10 MG CAPSULE PO SCH ×2 (17:33→22:14)
[2017-07-10] MEDS: THIAMINE HCL 100 MG TABLET (FP) PO SCH (22:14)
[2017-07-10] MEDS: diphenhydrAMINE HCL 50 MG CAPSULE PO PRN (22:14)
[2017-07-11] MEDS: chlordiazePOXIDE HCL 10 MG CAPSULE PO SCH ×2 (05:38→10:03)
[2017-07-11] MEDS ORDERED: METHADONE HCL 10 MG TABLET (FOR DETOX USE ONLY) PO SCH (10:00)
[2017-07-11] MEDS: PRENATAL VITAMINS W/ FOLIC ACID TABLET (FP) PO SCH (10:03)
[2017-07-11] MEDS: NICOTINE 14 MG/24 HOURS TOPICAL PATCH TD SCH (10:03)
--- NOTE | 2017-07-11 11:04 | PN ---
BHS Progress Note (SOAP) Subjective: Sweating,interrupted sleep,restless Objective: 07/11/17 11:01 Vital Signs - 8 hr 07/11/17 07/11/17 06:29 09:35 Temperature 96.7 F L 97.6 F Pulse Rate 90 100 H Respiratory 18 18 Rate Blood Pressure 133/92 116/82 Laboratory Last Values WBC 7.6 K/mm3 (4.0-10.0) 07/07/17 14:00 RBC 4.89 M/mm3 (4.00-5.60) 07/07/17 14:00 Hgb 15.1 GM/dL (11.7-16.9) 07/07/17 14:00 Hct 42.9 % (35.4-49) 07/07/17 14:00 MCV 87.7 fl (80-96) 07/07/17 14:00 MCH 30.8 pg (25.7-33.7) 07/07/17 14:00 MCHC 35.1 g/dl (32.0-35.9) 07/07/17 14:00 RDW 13.5 % (11.9-15.9) 07/07/17 14:00 Plt Count 291 K/MM3 (134-434) D 07/07/17 14:00 MPV 8.5 fl (7.5-11.1) 07/07/17 14:00 Sodium 141 mmol/L (136-145) 07/07/17 14:00 Potassium 4.2 mmol/L (3.5-5.1) 07/07/17 14:00 Chloride 108 mmol/L (98-107) H 07/07/17 14:00 Carbon Dioxide 26 mmol/L (21-32) 07/07/17 14:00 Anion Gap 7 (8-16) L 07/07/17 14:00 BUN 13 mg/dL (7-18) D 07/07/17 14:00 Creatinine 1.3 mg/dL (0.7-1.3) 07/07/17 14:00 Creat Clearance w eGFR > 60 (>60) 07/07/17 14:00 Random Glucose 119 mg/dL (74-106) H 07/07/17 14:00 Calcium 9.0 mg/dL (8.5-10.1) 07/07/17 14:00 Total Bilirubin 1.1 mg/dL (0.2-1.0) H 07/07/17 14:00 AST 14 U/L (15-37) L D 07/07/17 14:00 ALT 39 U/L (12-78) D 07/07/17 14:00 Alkaline Phosphatase 98 U/L (45-117) 07/07/17 14:00 Total Protein 7.3 g/dl (6.4-8.2) 07/07/17 14:00 Albumin 3.9 g/dl (3.4-5.0) 07/07/17 14:00 Urine Color Yellow 07/07/17 16:12 Urine Appearance Clear 07/07/17 16:12 Urine pH 5.0 (5.0-8.0) D 07/07/17 16:12 Ur Specific [place] 1.025 (1.005-1.025) 07/07/17 16:12 Urine Protein Negative (NEGATIVE) 07/07/17 16:12 Urine Glucose (UA) Negative (NEGATIVE) 07/07/17 16:12 Urine Ketones Negative (NEGATIVE) 07/07/17 16:12 Urine Blood Negative (NEGATIVE) 07/07/17 16:12 Urine Nitrite Negative (NEGATIVE) 07/07/17 16:12 Urine Bilirubin Negative (NEGATIVE) 07/07/17 16:12 Urine Urobilinogen 2.0 mg/dL (0.2-1.0) 07/07/17 16:12 Ur Leukocyte Esterase Negative (NEGATIVE) 07/07/17 16:12 RPR Titer Nonreactive (NONREACTIVE) 07/07/17 14:00 HIV 1&2 Antibody Screen Negative 07/07/17 14:00 HIV P24 Antigen Negative 07/07/17 14:00 labs noted Assessment: 07/11/17 11:03 Withdrawal sx. Plan: Continue detox
[2017-07-11] MEDS: THIAMINE HCL 100 MG TABLET (FP) PO SCH (22:08)
[2017-07-11] MEDS: diphenhydrAMINE HCL 50 MG CAPSULE PO PRN (22:08)
[2017-07-12] MEDS ORDERED: METHADONE HCL 5 MG TABLET (FOR DETOX USE ONLY) PO SCH (06:00)
[2017-07-12 06:23] VITALS: BP 124/85; PULSE 104; TEMP 97
[2017-07-12] MEDS: PRENATAL VITAMINS W/ FOLIC ACID TABLET (FP) PO SCH (09:32)
[2017-07-12] MEDS: NICOTINE 14 MG/24 HOURS TOPICAL PATCH TD SCH (09:32)
--- NOTE | 2017-07-12 13:29 | DS ---
[facility] Detox Discharge Summary Admission Date: 07/07/17 Discharge Date: 07/12/17 - History Present History: Alcohol Dependence, Opioid Dependence Pertinent Past History: Asthma - Physical Exam Results Vital Signs: Vital Signs Temperature 97.0 F L 07/12/17 06:22 Pulse Rate 104 H 07/12/17 06:22 Respiratory Rate 18 07/12/17 06:22 Blood Pressure 124/85 07/12/17 06:22 O2 Sat by Pulse Oximetry (%) Pertinent Admission Physical Exam Findings: Withdrawal sx. Laboratory Last Values WBC 7.6 K/mm3 (4.0-10.0) 07/07/17 14:00 RBC 4.89 M/mm3 (4.00-5.60) 07/07/17 14:00 Hgb 15.1 GM/dL (11.7-16.9) 07/07/17 14:00 Hct 42.9 % (35.4-49) 07/07/17 14:00 MCV 87.7 fl (80-96) 07/07/17 14:00 MCH 30.8 pg (25.7-33.7) 07/07/17 14:00 MCHC 35.1 g/dl (32.0-35.9) 07/07/17 14:00 RDW 13.5 % (11.9-15.9) 07/07/17 14:00 Plt Count 291 K/MM3 (134-434) D 07/07/17 14:00 MPV 8.5 fl (7.5-11.1) 07/07/17 14:00 Sodium 141 mmol/L (136-145) 07/07/17 14:00 Potassium 4.2 mmol/L (3.5-5.1) 07/07/17 14:00 Chloride 108 mmol/L (98-107) H 07/07/17 14:00 Carbon Dioxide 26 mmol/L (21-32) 07/07/17 14:00 Anion Gap 7 (8-16) L 07/07/17 14:00 BUN 13 mg/dL (7-18) D 07/07/17 14:00 Creatinine 1.3 mg/dL (0.7-1.3) 07/07/17 14:00 Creat Clearance w eGFR > 60 (>60) 07/07/17 14:00 Random Glucose 119 mg/dL (74-106) H 07/07/17 14:00 Calcium 9.0 mg/dL (8.5-10.1) 07/07/17 14:00 Total Bilirubin 1.1 mg/dL (0.2-1.0) H 07/07/17 14:00 AST 14 U/L (15-37) L D 07/07/17 14:00 ALT 39 U/L (12-78) D 07/07/17 14:00 Alkaline Phosphatase 98 U/L (45-117) 07/07/17 14:00 Total Protein 7.3 g/dl (6.4-8.2) 07/07/17 14:00 Albumin 3.9 g/dl (3.4-5.0) 07/07/17 14:00 Urine Color Yellow 07/07/17 16:12 Urine Appearance Clear 07/07/17 16:12 Urine pH 5.0 (5.0-8.0) D 07/07/17 16:12 Ur Specific [place] 1.025 (1.005-1.025) 07/07/17 16:12 Urine Protein Negative (NEGATIVE) 07/07/17 16:12 Urine Glucose (UA) Negative (NEGATIVE) 07/07/17 16:12 Urine Ketones Negative (NEGATIVE) 07/07/17 16:12 Urine Blood Negative (NEGATIVE) 07/07/17 16:12 Urine Nitrite Negative (NEGATIVE) 07/07/17 16:12 Urine Bilirubin Negative (NEGATIVE) 07/07/17 16:12 Urine Urobilinogen 2.0 mg/dL (0.2-1.0) 07/07/17 16:12 Ur Leukocyte Esterase Negative (NEGATIVE) 07/07/17 16:12 RPR Titer Nonreactive (NONREACTIVE) 07/07/17 14:00 HIV 1&2 Antibody Screen Negative 07/07/17 14:00 HIV P24 Antigen Negative 07/07/17 14:00 labs noted - Treatment Hospital Course: Detox Protocol Followed, Detoxed Safely, Responded well, Discharged Condition Good, Rehab Referral Accepted Patient has Accepted a Rehab Referral to: [facility] - Medication Discharge Medications: Ambulatory Orders Albuterol Sulfate Inhaler - [Ventolin HFA Inhaler -] 2 puff IH Q4H PRN #1 inhaler 05/12/17 - Diagnosis (1) Alcohol dependence with uncomplicated withdrawal Status: Acute (2) Nicotine dependence Status: Acute Qualifiers: Nicotine product type: cigarettes Substance use status: in withdrawal Qualified Code(s): F17.213 - Nicotine dependence, cigarettes, with withdrawal (3) Opioid dependence with withdrawal Status: Acute (4) Asthma Status: Chronic Qualifiers: Asthma severity: mild intermittent Asthma complication type: uncomplicated Qualified Code(s): J45.20 - Mild intermittent asthma, uncomplicated (5) Drug-induced mood disorder Status: Suspected - AMA Did Patient Leave Against Medical Advice: No
== END 2017-07-12 09:33 | disposition home or self-care (01) | DRG 897 ==
LOC: YASAS 12:24 → Y3N 15:18
PROVIDERS: ADMIT Internal Medicine; ATTEND Internal Medicine
PROC: HZ2ZZZZ Detoxification Services for Substance Abuse Treatment (ICD-10-PCS; principal; 2017-07-07)
DX: F11.23 Opioid dependence with withdrawal (principal); F14.20 Cocaine dependence, uncomplicated; F10.230 Alcohol dependence with withdrawal, uncomplicated; F17.213 Nicotine dependence, cigarettes, with withdrawal; F19.24 Other psychoactive substance dependence with psychoactive substance-induced mood disorder; J45.20 Mild intermittent asthma, uncomplicated; Z86.69 Personal history of other diseases of the nervous system and sense organs; Z91.013 Allergy to seafood; Z87.438 Personal history of other diseases of male genital organs; Z91.5 Personal history of self-harm
CPT/HCPCS: 36415; 80053; 81003; 85027; 86593; 87389; 93005; 93010

== ENCOUNTER 2022-07-27 09:31 | Inpatient (IN) | payer OTHER ==
[2022-07-27 10:03] VITALS: BMI 30.7
[2022-07-27] MEDS ORDERED: BENZOCAINE/MENTHOL (CHLORASEPTIC ) LOZENGE MM PRN (10:54)
[2022-07-27] MEDS ORDERED: MAG HYDROX/AL HYDROX/SIMETH 30 ML UNIT-DOSE CUP PO PRN (10:54)
[2022-07-27] MEDS ORDERED: IBUPROFEN 600 MG TABLET (FP) PO PRN (10:54)
[2022-07-27] MEDS ORDERED: MAGNESIUM HYDROX 2400MG/30ML ORAL SUSPENSION 30 ML CUP PO PRN (10:54)
[2022-07-27] MEDS ORDERED: DICYCLOMINE HCL 10 MG CAPSULE PO PRN (10:54)
[2022-07-27] MEDS ORDERED: NICOTINE 10 MG CARTRIDGE (INHALER) IH PRN (10:54)
[2022-07-27] MEDS ORDERED: ACETAMINOPHEN 325 MG TABLET (FP) PO PRN ×2 (10:54)
[2022-07-27] MEDS ORDERED: MAGNESIUM CITRATE 300 ML BOTTLE PO PRN (10:54)
[2022-07-27] MEDS ORDERED: LOPERAMIDE HCL 2 MG CAPSULE PO PRN (10:54)
[2022-07-27] MEDS ORDERED: BISMUTH SUBSALICYLATE 524 MG/30 ML PO PRN (10:54)
[2022-07-27] MEDS ORDERED: cloNIDine HCL 0.1 MG TABLET PO PRN (10:54)
[2022-07-27] MEDS: IBUPROFEN 400 MG TABLET (FP) PO PRN (11:53)
[2022-07-27] MEDS: METHOCARBAMOL 500 MG TABLET PO PRN (11:53)
[2022-07-27] MEDS: diazePAM 5 MG TABLET PO SCH ×3 (11:54→22:26)
[2022-07-27] MEDS: PRENATAL VITAMINS W/ FOLIC ACID TABLET (FP) PO SCH (11:57)
[2022-07-27] MEDS ORDERED: methaDONE HCL 10 MG TABLET (FOR DETOX USE ONLY) PO ONE (12:00)
[2022-07-27] MEDS: hydrOXYzine PAMOATE 25 MG CAPSULE (FP) PO SCH ×3 (14:58→22:26)
[2022-07-27 17:16] LABS: HEMATOCRIT 39.7 % (35.4-49); HEMOGLOBIN 13.7 GM/dL (11.7-16.9); MCH 30.9 pg (25.7-33.7); MCHC 34.5 g/dl (32.0-35.9); MEAN CELL VOLUME 89.6 fl (80-96); MEAN PLT VOLUME 8.3 fl (7.5-11.1); PLATELET COUNT 294 10^3/uL (134-434); RBC 4.43 M/mm3 (4.00-5.60); RDW 13.4 % (11.9-15.9); WHITE BLOOD COUNT 5.5 K/mm3 (4.0-10.0)
[2022-07-27 17:34] LABS: ALBUMIN 3.9 g/dl (3.4-5.0); CALCIUM 8.9 mg/dL (8.5-10.1)
[2022-07-27 17:36] LABS: CREATININE 1.3 mg/dL (0.55-1.3)
[2022-07-27 17:38] LABS: BILIRUBIN,TOTAL 1.2 mg/dL (0.2-1); TOT PROT 7.2 g/dl (6.4-8.2)
[2022-07-27] MEDS: ONDANSETRON *ODT* 4 MG TABLET SL PRN ×2 (17:39→17:47)
[2022-07-27] MEDS: diazePAM 5 MG TABLET PO PRN (19:38)
[2022-07-27] MEDS: GABAPENTIN 300 MG CAPSULE PO SCH (22:26)
[2022-07-27] MEDS: QUEtiapine FUMARATE 300 MG TABLET PO SCH (22:26)
[2022-07-27] MEDS: THIAMINE HCL 100 MG TABLET (FP) PO SCH (22:26)
[2022-07-27] MEDS: MELATONIN 5 MG TABLETS PO SCH (22:28)
[2022-07-28] MEDS: diazePAM 5 MG TABLET PO PRN ×2 (01:41→14:49)
[2022-07-28] MEDS: diazePAM 5 MG TABLET PO SCH ×4 (05:04→22:05)
[2022-07-28] MEDS: hydrOXYzine PAMOATE 25 MG CAPSULE (FP) PO SCH ×5 (05:04→22:05)
[2022-07-28] MEDS: PRENATAL VITAMINS W/ FOLIC ACID TABLET (FP) PO SCH (10:09)
[2022-07-28] MEDS: PARoxetine HCL 20 MG TABLET PO SCH (10:09)
[2022-07-28] MEDS: METHOCARBAMOL 500 MG TABLET PO PRN (10:12)
[2022-07-28] MEDS: IBUPROFEN 400 MG TABLET (FP) PO PRN (10:12)
[2022-07-28] MEDS: GABAPENTIN 300 MG CAPSULE PO SCH (22:05)
[2022-07-28] MEDS: THIAMINE HCL 100 MG TABLET (FP) PO SCH (22:05)
[2022-07-28] MEDS: QUEtiapine FUMARATE 300 MG TABLET PO SCH (22:05)
[2022-07-28] MEDS: MELATONIN 5 MG TABLETS PO SCH (23:35)
[2022-07-29] MEDS: diazePAM 5 MG TABLET PO SCH ×3 (06:07→22:41)
[2022-07-29] MEDS: hydrOXYzine PAMOATE 25 MG CAPSULE (FP) PO SCH ×5 (06:07→22:41)
[2022-07-29] MEDS ORDERED: methaDONE HCL 10 MG TABLET (FOR DETOX USE ONLY) PO ONE (10:00)
[2022-07-29] MEDS: PARoxetine HCL 20 MG TABLET PO SCH (10:09)
[2022-07-29] MEDS: PRENATAL VITAMINS W/ FOLIC ACID TABLET (FP) PO SCH (10:09)
[2022-07-29] MEDS: diazePAM 5 MG TABLET PO PRN ×2 (10:10→17:55)
[2022-07-29] MEDS: GABAPENTIN 300 MG CAPSULE PO SCH (22:40)
[2022-07-29] MEDS: QUEtiapine FUMARATE 300 MG TABLET PO SCH (22:40)
[2022-07-29] MEDS: THIAMINE HCL 100 MG TABLET (FP) PO SCH (22:41)
[2022-07-29] MEDS: MELATONIN 5 MG TABLETS PO SCH (22:41)
[2022-07-30] MEDS: diazePAM 5 MG TABLET PO PRN ×2 (00:44→10:21)
[2022-07-30] MEDS: hydrOXYzine PAMOATE 25 MG CAPSULE (FP) PO SCH ×5 (05:40→22:07)
[2022-07-30] MEDS: diazePAM 5 MG TABLET PO SCH ×2 (05:41→18:01)
[2022-07-30] MEDS: PRENATAL VITAMINS W/ FOLIC ACID TABLET (FP) PO SCH (10:18)
[2022-07-30] MEDS: PARoxetine HCL 20 MG TABLET PO SCH (10:18)
[2022-07-30 11:25] LABS: BILIRUBIN,TOTAL 1.4 mg/dL (0.2-1)
[2022-07-30] MEDS: GABAPENTIN 300 MG CAPSULE PO SCH (22:05)
[2022-07-30] MEDS: QUEtiapine FUMARATE 300 MG TABLET PO SCH (22:06)
[2022-07-30] MEDS: THIAMINE HCL 100 MG TABLET (FP) PO SCH (22:06)
[2022-07-30] MEDS: MELATONIN 5 MG TABLETS PO SCH (22:07)
[2022-07-31] MEDS: hydrOXYzine PAMOATE 25 MG CAPSULE (FP) PO SCH ×4 (05:26→22:10)
[2022-07-31] MEDS ORDERED: diazePAM 5 MG TABLET PO ONE (06:00)
[2022-07-31] MEDS ORDERED: methaDONE HCL 10 MG TABLET (FOR DETOX USE ONLY) PO ONE (10:00)
[2022-07-31] MEDS: PRENATAL VITAMINS W/ FOLIC ACID TABLET (FP) PO SCH (10:26)
[2022-07-31] MEDS: PARoxetine HCL 20 MG TABLET PO SCH (10:26)
[2022-07-31] MEDS: METHOCARBAMOL 500 MG TABLET PO PRN ×2 (10:26→17:44)
[2022-07-31] MEDS: QUEtiapine FUMARATE 300 MG TABLET PO SCH (22:10)
[2022-07-31] MEDS: MELATONIN 5 MG TABLETS PO SCH (22:10)
[2022-07-31] MEDS: THIAMINE HCL 100 MG TABLET (FP) PO SCH (22:10)
[2022-07-31] MEDS: GABAPENTIN 300 MG CAPSULE PO SCH (22:10)
[2022-08-01] MEDS: hydrOXYzine PAMOATE 25 MG CAPSULE (FP) PO SCH ×6 (01:05→21:04)
[2022-08-01] MEDS: PRENATAL VITAMINS W/ FOLIC ACID TABLET (FP) PO SCH (09:34)
[2022-08-01] MEDS: PARoxetine HCL 20 MG TABLET PO SCH (09:34)
[2022-08-01] MEDS: MELATONIN 5 MG TABLETS PO SCH (21:02)
[2022-08-01] MEDS ORDERED: QUEtiapine FUMARATE 100 MG TABLET (FP) ONE (21:03)
[2022-08-01] MEDS: THIAMINE HCL 100 MG TABLET (FP) PO SCH (21:03)
[2022-08-01] MEDS: GABAPENTIN 300 MG CAPSULE PO SCH (21:04)
[2022-08-01] MEDS: QUEtiapine FUMARATE 300 MG TABLET PO SCH (21:05)
[2022-08-02] MEDS: hydrOXYzine PAMOATE 25 MG CAPSULE (FP) PO SCH ×2 (06:34→09:39)
[2022-08-02] MEDS: PRENATAL VITAMINS W/ FOLIC ACID TABLET (FP) PO SCH (09:39)
[2022-08-02] MEDS: PARoxetine HCL 20 MG TABLET PO SCH (11:00)
[2022-08-02] MEDS ORDERED: QUEtiapine FUMARATE 100 MG TABLET (FP) ONE (18:30)
[2022-08-02] MEDS: THIAMINE HCL 100 MG TABLET (FP) PO SCH (21:03)
[2022-08-02] MEDS: GABAPENTIN 300 MG CAPSULE PO SCH (21:03)
[2022-08-02] MEDS: MELATONIN 5 MG TABLETS PO SCH (21:03)
[2022-08-02] MEDS: QUEtiapine FUMARATE 300 MG TABLET PO SCH (21:04)
[2022-08-03] MEDS: PARoxetine HCL 20 MG TABLET PO SCH (09:40)
[2022-08-03] MEDS: PRENATAL VITAMINS W/ FOLIC ACID TABLET (FP) PO SCH (09:40)
[2022-08-03] MEDS ORDERED: QUEtiapine FUMARATE 100 MG TABLET (FP) ONE (19:28)
[2022-08-03] MEDS: GABAPENTIN 300 MG CAPSULE PO SCH (21:35)
[2022-08-03] MEDS: MELATONIN 5 MG TABLETS PO SCH (21:35)
[2022-08-03] MEDS: THIAMINE HCL 100 MG TABLET (FP) PO SCH (21:35)
[2022-08-03] MEDS: QUEtiapine FUMARATE 300 MG TABLET PO SCH (21:35)
[2022-08-04] MEDS: PRENATAL VITAMINS W/ FOLIC ACID TABLET (FP) PO SCH (09:30)
[2022-08-04] MEDS: PARoxetine HCL 20 MG TABLET PO SCH (09:30)
[2022-08-04] MEDS ORDERED: QUEtiapine FUMARATE 100 MG TABLET (FP) ONE (18:36)
[2022-08-04] MEDS: MELATONIN 5 MG TABLETS PO SCH (21:19)
[2022-08-04] MEDS: THIAMINE HCL 100 MG TABLET (FP) PO SCH (21:19)
[2022-08-04] MEDS: GABAPENTIN 300 MG CAPSULE PO SCH (21:19)
[2022-08-04] MEDS: QUEtiapine FUMARATE 300 MG TABLET PO SCH (21:20)
[2022-08-05] MEDS: PRENATAL VITAMINS W/ FOLIC ACID TABLET (FP) PO SCH (09:35)
[2022-08-05] MEDS: PARoxetine HCL 20 MG TABLET PO SCH (09:35)
[2022-08-05] MEDS ORDERED: QUEtiapine FUMARATE 100 MG TABLET (FP) ONE (18:51)
[2022-08-05] MEDS: THIAMINE HCL 100 MG TABLET (FP) PO SCH (21:08)
[2022-08-05] MEDS: MELATONIN 5 MG TABLETS PO SCH (21:08)
[2022-08-05] MEDS: GABAPENTIN 300 MG CAPSULE PO SCH (21:08)
[2022-08-05] MEDS: QUEtiapine FUMARATE 300 MG TABLET PO SCH (21:09)
[2022-08-06] MEDS: PARoxetine HCL 20 MG TABLET PO SCH (09:47)
[2022-08-06] MEDS: PRENATAL VITAMINS W/ FOLIC ACID TABLET (FP) PO SCH (09:47)
[2022-08-06] MEDS ORDERED: QUEtiapine FUMARATE 100 MG TABLET (FP) ONE (18:37)
[2022-08-06] MEDS: MELATONIN 5 MG TABLETS PO SCH (21:09)
[2022-08-06] MEDS: GABAPENTIN 300 MG CAPSULE PO SCH (21:09)
[2022-08-06] MEDS: THIAMINE HCL 100 MG TABLET (FP) PO SCH (21:09)
[2022-08-06] MEDS: QUEtiapine FUMARATE 300 MG TABLET PO SCH (21:10)
[2022-08-07] MEDS: PRENATAL VITAMINS W/ FOLIC ACID TABLET (FP) PO SCH (09:30)
[2022-08-07] MEDS: PARoxetine HCL 20 MG TABLET PO SCH (09:30)
[2022-08-07] MEDS: THIAMINE HCL 100 MG TABLET (FP) PO SCH (21:23)
[2022-08-07] MEDS: MELATONIN 5 MG TABLETS PO SCH (21:23)
[2022-08-07] MEDS: QUEtiapine FUMARATE 300 MG TABLET PO SCH (21:23)
[2022-08-07] MEDS: GABAPENTIN 300 MG CAPSULE PO SCH (21:23)
[2022-08-08] MEDS: PARoxetine HCL 20 MG TABLET PO SCH (09:33)
[2022-08-08] MEDS: PRENATAL VITAMINS W/ FOLIC ACID TABLET (FP) PO SCH (09:33)
[2022-08-08] MEDS ORDERED: QUEtiapine FUMARATE 100 MG TABLET (FP) ONE (20:13)
[2022-08-08] MEDS: QUEtiapine FUMARATE 300 MG TABLET PO SCH (21:51)
[2022-08-08] MEDS: GABAPENTIN 300 MG CAPSULE PO SCH (21:51)
[2022-08-08] MEDS: THIAMINE HCL 100 MG TABLET (FP) PO SCH (21:51)
[2022-08-08] MEDS: MELATONIN 5 MG TABLETS PO SCH (21:52)
[2022-08-09] MEDS: PRENATAL VITAMINS W/ FOLIC ACID TABLET (FP) PO SCH (09:31)
[2022-08-09] MEDS: PARoxetine HCL 20 MG TABLET PO SCH (09:31)
[2022-08-09 17:22] LABS: HIV INTERPRETATION NEGATIVE (NEGATIVE)
[2022-08-09] MEDS ORDERED: QUEtiapine FUMARATE 100 MG TABLET (FP) ONE (18:15)
[2022-08-09] MEDS: MELATONIN 5 MG TABLETS PO SCH (21:18)
[2022-08-09] MEDS: THIAMINE HCL 100 MG TABLET (FP) PO SCH (21:18)
[2022-08-09] MEDS: GABAPENTIN 300 MG CAPSULE PO SCH (21:19)
[2022-08-09] MEDS: QUEtiapine FUMARATE 300 MG TABLET PO SCH (21:19)
[2022-08-10] MEDS: PARoxetine HCL 20 MG TABLET PO SCH (09:43)
[2022-08-10] MEDS: PRENATAL VITAMINS W/ FOLIC ACID TABLET (FP) PO SCH (09:43)
[2022-08-10] MEDS ORDERED: QUEtiapine FUMARATE 100 MG TABLET (FP) ONE (19:48)
[2022-08-10] MEDS: QUEtiapine FUMARATE 300 MG TABLET PO SCH (21:07)
[2022-08-10] MEDS: THIAMINE HCL 100 MG TABLET (FP) PO SCH (21:07)
[2022-08-10] MEDS: GABAPENTIN 300 MG CAPSULE PO SCH (21:07)
[2022-08-10] MEDS: MELATONIN 5 MG TABLETS PO SCH (21:07)
[2022-08-11] MEDS: PARoxetine HCL 20 MG TABLET PO SCH (09:44)
[2022-08-11] MEDS: PRENATAL VITAMINS W/ FOLIC ACID TABLET (FP) PO SCH (09:44)
[2022-08-11] MEDS ORDERED: QUEtiapine FUMARATE 100 MG TABLET (FP) ONE (18:35)
[2022-08-11] MEDS: MELATONIN 5 MG TABLETS PO SCH (21:15)
[2022-08-11] MEDS: THIAMINE HCL 100 MG TABLET (FP) PO SCH (21:15)
[2022-08-11] MEDS: QUEtiapine FUMARATE 300 MG TABLET PO SCH (21:16)
[2022-08-11] MEDS: GABAPENTIN 300 MG CAPSULE PO SCH (21:17)
[2022-08-12] MEDS: PRENATAL VITAMINS W/ FOLIC ACID TABLET (FP) PO SCH (09:33)
[2022-08-12] MEDS: PARoxetine HCL 20 MG TABLET PO SCH (09:33)
[2022-08-12] MEDS: BUPRENORPHINE/NALOXONE 4 MG/1 MG FILM PACKET SL SCH ×2 (11:40→21:16)
[2022-08-12] MEDS ORDERED: QUEtiapine FUMARATE 100 MG TABLET (FP) ONE (18:28)
[2022-08-12] MEDS: MELATONIN 5 MG TABLETS PO SCH (21:14)
[2022-08-12] MEDS: QUEtiapine FUMARATE 300 MG TABLET PO SCH (21:14)
[2022-08-12] MEDS: THIAMINE HCL 100 MG TABLET (FP) PO SCH (21:14)
[2022-08-12] MEDS: GABAPENTIN 300 MG CAPSULE PO SCH (21:15)
[2022-08-13] MEDS: PARoxetine HCL 20 MG TABLET PO SCH (09:48)
[2022-08-13] MEDS: PRENATAL VITAMINS W/ FOLIC ACID TABLET (FP) PO SCH (09:49)
[2022-08-13] MEDS: BUPRENORPHINE/NALOXONE 4 MG/1 MG FILM PACKET SL SCH (09:49)
[2022-08-13] MEDS ORDERED: QUEtiapine FUMARATE 100 MG TABLET (FP) ONE (19:25)
[2022-08-13] MEDS: BUPRENORPHINE/NALOXONE 8 MG/2 MG FILM PACKET SL SCH (21:43)
[2022-08-13] MEDS: GABAPENTIN 300 MG CAPSULE PO SCH (21:43)
[2022-08-13] MEDS: MELATONIN 5 MG TABLETS PO SCH (21:43)
[2022-08-13] MEDS: QUEtiapine FUMARATE 300 MG TABLET PO SCH (21:44)
[2022-08-13] MEDS: THIAMINE HCL 100 MG TABLET (FP) PO SCH (21:44)
[2022-08-14] MEDS: BUPRENORPHINE/NALOXONE 8 MG/2 MG FILM PACKET SL SCH ×2 (09:39→21:55)
[2022-08-14] MEDS: PARoxetine HCL 20 MG TABLET PO SCH (09:39)
[2022-08-14] MEDS: PRENATAL VITAMINS W/ FOLIC ACID TABLET (FP) PO SCH (09:40)
[2022-08-14] MEDS ORDERED: QUEtiapine FUMARATE 100 MG TABLET (FP) ONE (18:45)
[2022-08-14] MEDS: MELATONIN 5 MG TABLETS PO SCH (21:09)
[2022-08-14] MEDS: THIAMINE HCL 100 MG TABLET (FP) PO SCH (21:09)
[2022-08-14] MEDS: GABAPENTIN 300 MG CAPSULE PO SCH (21:09)
[2022-08-14] MEDS: QUEtiapine FUMARATE 300 MG TABLET PO SCH (21:10)
[2022-08-14] MEDS ORDERED: BUPRENORPHINE/NALOXONE 8 MG/2 MG FILM PACKET SL SCH (22:00)
[2022-08-15] MEDS: PARoxetine HCL 20 MG TABLET PO SCH (09:32)
[2022-08-15] MEDS: BUPRENORPHINE/NALOXONE 8 MG/2 MG FILM PACKET SL SCH ×2 (09:32→21:06)
[2022-08-15] MEDS: PRENATAL VITAMINS W/ FOLIC ACID TABLET (FP) PO SCH (09:33)
[2022-08-15] MEDS ORDERED: QUEtiapine FUMARATE 100 MG TABLET (FP) ONE (18:39)
[2022-08-15] MEDS: hydrOXYzine PAMOATE 50 MG CAPSULE (FP) PO PRN (21:05)
[2022-08-15] MEDS: GABAPENTIN 300 MG CAPSULE PO SCH (21:05)
[2022-08-15] MEDS: MELATONIN 5 MG TABLETS PO SCH (21:05)
[2022-08-15] MEDS: THIAMINE HCL 100 MG TABLET (FP) PO SCH (21:05)
[2022-08-15] MEDS: QUEtiapine FUMARATE 300 MG TABLET PO SCH (21:06)
[2022-08-16] MEDS: PRENATAL VITAMINS W/ FOLIC ACID TABLET (FP) PO SCH (10:06)
[2022-08-16] MEDS: BUPRENORPHINE/NALOXONE 8 MG/2 MG FILM PACKET SL SCH ×2 (10:06→21:11)
[2022-08-16] MEDS: PARoxetine HCL 20 MG TABLET PO SCH (10:06)
[2022-08-16] MEDS ORDERED: QUEtiapine FUMARATE 100 MG TABLET (FP) ONE (19:03)
[2022-08-16] MEDS: QUEtiapine FUMARATE 300 MG TABLET PO SCH (21:11)
[2022-08-16] MEDS: GABAPENTIN 300 MG CAPSULE PO SCH (21:11)
[2022-08-16] MEDS: THIAMINE HCL 100 MG TABLET (FP) PO SCH (21:11)
[2022-08-16] MEDS: hydrOXYzine PAMOATE 50 MG CAPSULE (FP) PO PRN (21:11)
[2022-08-16] MEDS: MELATONIN 5 MG TABLETS PO SCH (21:12)
[2022-08-17] MEDS: BUPRENORPHINE/NALOXONE 8 MG/2 MG FILM PACKET SL SCH ×2 (09:39→21:04)
[2022-08-17] MEDS: PRENATAL VITAMINS W/ FOLIC ACID TABLET (FP) PO SCH (09:39)
[2022-08-17] MEDS: PARoxetine HCL 20 MG TABLET PO SCH (09:39)
[2022-08-17] MEDS ORDERED: QUEtiapine FUMARATE 100 MG TABLET (FP) ONE (19:21)
[2022-08-17] MEDS: THIAMINE HCL 100 MG TABLET (FP) PO SCH (21:03)
[2022-08-17] MEDS: MELATONIN 5 MG TABLETS PO SCH (21:04)
[2022-08-17] MEDS: hydrOXYzine PAMOATE 50 MG CAPSULE (FP) PO PRN (21:04)
[2022-08-17] MEDS: QUEtiapine FUMARATE 300 MG TABLET PO SCH (21:07)
[2022-08-17] MEDS: GABAPENTIN 300 MG CAPSULE PO SCH (21:07)
[2022-08-18] MEDS: PARoxetine HCL 20 MG TABLET PO SCH (09:35)
[2022-08-18] MEDS: PRENATAL VITAMINS W/ FOLIC ACID TABLET (FP) PO SCH (09:35)
[2022-08-18] MEDS: BUPRENORPHINE/NALOXONE 8 MG/2 MG FILM PACKET SL SCH ×2 (09:36→21:01)
[2022-08-18] MEDS: MELATONIN 5 MG TABLETS PO SCH (21:00)
[2022-08-18] MEDS: hydrOXYzine PAMOATE 50 MG CAPSULE (FP) PO PRN (21:00)
[2022-08-18] MEDS: GABAPENTIN 300 MG CAPSULE PO SCH (21:00)
[2022-08-18] MEDS: THIAMINE HCL 100 MG TABLET (FP) PO SCH (21:00)
[2022-08-18] MEDS: QUEtiapine FUMARATE 300 MG TABLET PO SCH (21:00)
[2022-08-19] MEDS: PRENATAL VITAMINS W/ FOLIC ACID TABLET (FP) PO SCH (10:11)
[2022-08-19] MEDS: PARoxetine HCL 20 MG TABLET PO SCH (10:12)
[2022-08-19] MEDS: BUPRENORPHINE/NALOXONE 8 MG/2 MG FILM PACKET SL SCH ×2 (10:12→21:12)
[2022-08-19] MEDS ORDERED: QUEtiapine FUMARATE 100 MG TABLET (FP) ONE (18:32)
[2022-08-19] MEDS: hydrOXYzine PAMOATE 50 MG CAPSULE (FP) PO PRN (21:12)
[2022-08-19] MEDS: GABAPENTIN 300 MG CAPSULE PO SCH (21:12)
[2022-08-19] MEDS: THIAMINE HCL 100 MG TABLET (FP) PO SCH (21:13)
[2022-08-19] MEDS: MELATONIN 5 MG TABLETS PO SCH (21:13)
[2022-08-19] MEDS: QUEtiapine FUMARATE 300 MG TABLET PO SCH (21:13)
[2022-08-20] MEDS: PRENATAL VITAMINS W/ FOLIC ACID TABLET (FP) PO SCH (09:35)
[2022-08-20] MEDS: BUPRENORPHINE/NALOXONE 8 MG/2 MG FILM PACKET SL SCH ×2 (09:35→21:04)
[2022-08-20] MEDS: PARoxetine HCL 20 MG TABLET PO SCH (09:35)
[2022-08-20] MEDS ORDERED: QUEtiapine FUMARATE 100 MG TABLET (FP) ONE (20:01)
[2022-08-20] MEDS: QUEtiapine FUMARATE 300 MG TABLET PO SCH (21:03)
[2022-08-20] MEDS: GABAPENTIN 300 MG CAPSULE PO SCH (21:03)
[2022-08-20] MEDS: THIAMINE HCL 100 MG TABLET (FP) PO SCH (21:03)
[2022-08-20] MEDS: MELATONIN 5 MG TABLETS PO SCH (21:04)
[2022-08-21] MEDS: PARoxetine HCL 20 MG TABLET PO SCH (09:45)
[2022-08-21] MEDS: PRENATAL VITAMINS W/ FOLIC ACID TABLET (FP) PO SCH (09:45)
[2022-08-21] MEDS: BUPRENORPHINE/NALOXONE 8 MG/2 MG FILM PACKET SL SCH ×2 (09:45→21:04)
[2022-08-21] MEDS ORDERED: QUEtiapine FUMARATE 100 MG TABLET (FP) ONE (19:04)
[2022-08-21] MEDS: hydrOXYzine PAMOATE 50 MG CAPSULE (FP) PO PRN (21:04)
[2022-08-21] MEDS: GABAPENTIN 300 MG CAPSULE PO SCH (21:05)
[2022-08-21] MEDS: THIAMINE HCL 100 MG TABLET (FP) PO SCH (21:05)
[2022-08-21] MEDS: QUEtiapine FUMARATE 300 MG TABLET PO SCH (21:05)
[2022-08-21] MEDS: MELATONIN 5 MG TABLETS PO SCH (21:05)
[2022-08-22] MEDS: PARoxetine HCL 20 MG TABLET PO SCH (09:39)
[2022-08-22] MEDS: BUPRENORPHINE/NALOXONE 8 MG/2 MG FILM PACKET SL SCH ×2 (09:40→21:05)
[2022-08-22] MEDS: PRENATAL VITAMINS W/ FOLIC ACID TABLET (FP) PO SCH (09:40)
[2022-08-22] MEDS ORDERED: QUEtiapine FUMARATE 100 MG TABLET (FP) ONE (19:11)
[2022-08-22] MEDS: QUEtiapine FUMARATE 300 MG TABLET PO SCH (21:05)
[2022-08-22] MEDS: GABAPENTIN 300 MG CAPSULE PO SCH (21:05)
[2022-08-22] MEDS: MELATONIN 5 MG TABLETS PO SCH (21:06)
[2022-08-22] MEDS: THIAMINE HCL 100 MG TABLET (FP) PO SCH (22:17)
[2022-08-23 06:36] VITALS: BP 100/65; PULSE 106; RESP 16; TEMP 98.4
[2022-08-23] MEDS: PRENATAL VITAMINS W/ FOLIC ACID TABLET (FP) PO SCH (09:02)
[2022-08-23] MEDS: PARoxetine HCL 20 MG TABLET PO SCH (09:02)
[2022-08-23] MEDS: BUPRENORPHINE/NALOXONE 8 MG/2 MG FILM PACKET SL SCH (09:03)
== END 2022-08-23 09:18 | disposition home or self-care (01) | DRG 895 ==
LOC: YASAS 09:31 → Y6N 11:12 → Y3E 08-01 11:27
PROVIDERS: ADMIT Allergy & Immunology; ATTEND Surgery
PROC: HZ2ZZZZ Detoxification Services for Substance Abuse Treatment (ICD-10-PCS; 2022-07-27)
PROC: HZ42ZZZ Group Counseling for Substance Abuse Treatment, Cognitive-Behavioral (ICD-10-PCS; principal; 2022-08-01)
DX: F11.20 Opioid dependence, uncomplicated (principal); F13.20 Sedative, hypnotic or anxiolytic dependence, uncomplicated; F19.280 Other psychoactive substance dependence with psychoactive substance-induced anxiety disorder; F19.282 Other psychoactive substance dependence with psychoactive substance-induced sleep disorder; F10.20 Alcohol dependence, uncomplicated; F19.24 Other psychoactive substance dependence with psychoactive substance-induced mood disorder; F25.0 Schizoaffective disorder, bipolar type; F41.0 Panic disorder [episodic paroxysmal anxiety]; F90.9 Attention-deficit hyperactivity disorder, unspecified type; F60.2 Antisocial personality disorder; J45.909 Unspecified asthma, uncomplicated; Z62.810 Personal history of physical and sexual abuse in childhood; Z86.69 Personal history of other diseases of the nervous system and sense organs; Z87.891 Personal history of nicotine dependence
CPT/HCPCS: 36415; 80053; 82247; 82947; 83036; 85027; 86780; 87389; C9803-CS; Q0162; U0003; U0005

== ENCOUNTER 2022-09-27 09:14 | Inpatient (IN) | payer OTHER ==
[2022-09-27 10:15] VITALS: BMI 32.1
[2022-09-27] MEDS ORDERED: ONDANSETRON *ODT* 4 MG TABLET SL PRN (11:04)
[2022-09-27] MEDS ORDERED: IBUPROFEN 600 MG TABLET (FP) PO PRN (11:04)
[2022-09-27] MEDS ORDERED: MAGNESIUM CITRATE 300 ML BOTTLE PO PRN (11:04)
[2022-09-27] MEDS ORDERED: MAG HYDROX/AL HYDROX/SIMETH 30 ML UNIT-DOSE CUP PO PRN (11:04)
[2022-09-27] MEDS ORDERED: IBUPROFEN 400 MG TABLET (FP) PO PRN (11:04)
[2022-09-27] MEDS ORDERED: DICYCLOMINE HCL 10 MG CAPSULE PO PRN (11:04)
[2022-09-27] MEDS ORDERED: BISMUTH SUBSALICYLATE 262 MG/15 ML BTL PO PRN (11:04)
[2022-09-27] MEDS ORDERED: NALOXONE HCL (KLOXXADO) 8 MG SPRAY NS PRN (11:04)
[2022-09-27] MEDS ORDERED: ACETAMINOPHEN 325 MG TABLET (FP) PO PRN ×2 (11:04)
[2022-09-27] MEDS ORDERED: LOPERAMIDE HCL 2 MG CAPSULE PO PRN (11:04)
[2022-09-27] MEDS ORDERED: MAGNESIUM HYDROX 2400MG/30ML ORAL SUSPENSION 30 ML CUP PO PRN (11:04)
[2022-09-27] MEDS ORDERED: BENZOCAINE/MENTHOL (CHLORASEPTIC ) LOZENGE MM PRN (11:04)
[2022-09-27] MEDS ORDERED: methaDONE HCL 10 MG TABLET (FOR DETOX USE ONLY) PO ONE (11:08)
[2022-09-27] MEDS ORDERED: cloNIDine HCL 0.1 MG TABLET PO PRN (11:08)
[2022-09-27] MEDS ORDERED: ALBUTEROL SO4 HFA INHALER IH PRN (11:53)
[2022-09-27] MEDS ORDERED: methaDONE HCL 10 MG TABLET (FOR DETOX USE ONLY) ONE (12:21)
[2022-09-27] MEDS: diazePAM 5 MG TABLET PO PRN ×2 (13:22→19:01)
[2022-09-27] MEDS: METHOCARBAMOL 500 MG TABLET PO PRN ×2 (13:23→22:16)
[2022-09-27] MEDS: PRENATAL VITAMINS W/ FOLIC ACID TABLET (FP) PO SCH (13:23)
[2022-09-27 15:56] LABS: HEMATOCRIT 42.7 % (35.4-49); HEMOGLOBIN 14.9 GM/dL (11.7-16.9); MEAN CELL VOLUME 88.7 fl (80-96); MEAN PLT VOLUME 8.1 fl (7.5-11.1); PLATELET COUNT 289 10^3/uL (134-434); RBC 4.81 M/mm3 (4.00-5.60); RDW 13.2 % (11.9-15.9); WHITE BLOOD COUNT 6.5 K/mm3 (4.0-10.0)
[2022-09-27 16:33] LABS: ALBUMIN 4.2 g/dl (3.4-5.0)
[2022-09-27 16:34] LABS: BLOOD UREA NITROGEN 19.6 mg/dL (7-18)
[2022-09-27 16:37] LABS: CREATININE 1.1 mg/dL (0.55-1.3)
[2022-09-27 16:38] LABS: BILIRUBIN,TOTAL 1.4 mg/dL (0.2-1)
[2022-09-27 16:39] LABS: TOT PROT 7.4 g/dl (6.4-8.2)
[2022-09-27 16:43] LABS: URINE APPEARANCE CLEAR; URINE BILIRUBIN NEGATIVE (NEGATIVE); URINE COLOR YELLOW; URINE GLUCOSE (UA) NEGATIVE (NEGATIVE); URINE KETONE NEGATIVE (NEGATIVE); URINE LEUK ESTERASE NEGATIVE (NEGATIVE); URINE NITRITE NEGATIVE (NEGATIVE); URINE PROTEIN NEGATIVE (NEGATIVE); URINE UROBILINOGEN 0.2 mg/dL (0.2-1.0)
[2022-09-27] MEDS: MELATONIN 5 MG TABLETS PO SCH (22:15)
[2022-09-27] MEDS: THIAMINE HCL 100 MG TABLET (FP) PO SCH (22:15)
[2022-09-27] MEDS: hydrOXYzine PAMOATE 25 MG CAPSULE (FP) PO PRN (22:16)
[2022-09-28] MEDS: METHOCARBAMOL 500 MG TABLET PO PRN (05:42)
[2022-09-28] MEDS: diazePAM 5 MG TABLET PO PRN ×3 (05:43→21:31)
[2022-09-28] MEDS: PRENATAL VITAMINS W/ FOLIC ACID TABLET (FP) PO SCH (10:12)
[2022-09-28] MEDS: THIAMINE HCL 100 MG TABLET (FP) PO SCH (21:31)
[2022-09-28] MEDS: MELATONIN 5 MG TABLETS PO SCH (22:08)
[2022-09-29] MEDS: METHOCARBAMOL 500 MG TABLET PO PRN ×2 (05:16→13:19)
[2022-09-29] MEDS: diazePAM 5 MG TABLET PO PRN ×4 (05:16→22:06)
[2022-09-29] MEDS ORDERED: methaDONE HCL 10 MG TABLET (FOR DETOX USE ONLY) PO ONE (10:00)
[2022-09-29] MEDS: PRENATAL VITAMINS W/ FOLIC ACID TABLET (FP) PO SCH (10:04)
[2022-09-29] MEDS: MELATONIN 5 MG TABLETS PO SCH (22:07)
[2022-09-29] MEDS: THIAMINE HCL 100 MG TABLET (FP) PO SCH (22:07)
[2022-09-30] MEDS: METHOCARBAMOL 500 MG TABLET PO PRN ×2 (04:36→18:15)
[2022-09-30] MEDS: diazePAM 5 MG TABLET PO PRN ×2 (05:50→10:06)
[2022-09-30] MEDS: PRENATAL VITAMINS W/ FOLIC ACID TABLET (FP) PO SCH (10:07)
[2022-09-30] MEDS: hydrOXYzine PAMOATE 25 MG CAPSULE (FP) PO PRN ×3 (15:05→22:39)
[2022-09-30] MEDS: THIAMINE HCL 100 MG TABLET (FP) PO SCH (22:39)
[2022-09-30] MEDS: MELATONIN 5 MG TABLETS PO SCH (22:39)
[2022-10-01] MEDS: METHOCARBAMOL 500 MG TABLET PO PRN ×2 (05:20→17:14)
[2022-10-01] MEDS: hydrOXYzine PAMOATE 25 MG CAPSULE (FP) PO PRN ×2 (05:20→17:14)
[2022-10-01 09:04] VITALS: RESP 18
[2022-10-01] MEDS ORDERED: methaDONE HCL 10 MG TABLET (FOR DETOX USE ONLY) PO ONE (10:00)
[2022-10-01] MEDS: PRENATAL VITAMINS W/ FOLIC ACID TABLET (FP) PO SCH (10:03)
[2022-10-01] MEDS: MELATONIN 5 MG TABLETS PO SCH (22:15)
[2022-10-01] MEDS: THIAMINE HCL 100 MG TABLET (FP) PO SCH (22:15)
[2022-10-02] MEDS: hydrOXYzine PAMOATE 25 MG CAPSULE (FP) PO PRN (05:52)
[2022-10-02] MEDS: METHOCARBAMOL 500 MG TABLET PO PRN (05:52)
[2022-10-02 09:27] VITALS: BP 125/88; PULSE 116; TEMP 98.2
== END 2022-10-02 09:56 | disposition left against medical advice (07) | DRG 894 ==
LOC: YASAS 09:14 → Y6N 12:14
PROVIDERS: ADMIT Allergy & Immunology; ATTEND Surgery
PROC: HZ2ZZZZ Detoxification Services for Substance Abuse Treatment (ICD-10-PCS; principal; 2022-09-27)
DX: F11.23 Opioid dependence with withdrawal (principal); F13.20 Sedative, hypnotic or anxiolytic dependence, uncomplicated; F19.280 Other psychoactive substance dependence with psychoactive substance-induced anxiety disorder; F19.282 Other psychoactive substance dependence with psychoactive substance-induced sleep disorder; F10.230 Alcohol dependence with withdrawal, uncomplicated; F15.10 Other stimulant abuse, uncomplicated; F17.210 Nicotine dependence, cigarettes, uncomplicated; F25.0 Schizoaffective disorder, bipolar type; F31.9 Bipolar disorder, unspecified; F19.24 Other psychoactive substance dependence with psychoactive substance-induced mood disorder; F41.0 Panic disorder [episodic paroxysmal anxiety]; F60.2 Antisocial personality disorder; J45.909 Unspecified asthma, uncomplicated
CPT/HCPCS: 36415; 80053; 81003; 85027; 86780; 87811; C9803-CS; U0003; U0005